=== PATIENT | male | born 1975 ===

== ENCOUNTER 2020-03-14 19:24 | Emergency (ER) | payer OTHER ==
[~2020-03-14] VITALS: Ht 182.9 cm; Wt 90.7 kg
--- NOTE | 2020-03-14 19:30 | NUR ---
PT AAOX4. BIBRA 102 FOR C/O "I FELT LIKE I'M DYING"S/P TAKING EDIBLE 1 HR AGO. DENIES SI OR HI. VSS. NO ACUTE DISTRESS NOTED.
[2020-03-14 20:02] LABS: BASOPHILS % (AUTO) 0.8 % (0.0-2.0); EOSINOPHILS % (AUTO) 3.8 % (0.0-6.0); HEMATOCRIT 36 % (39-51); HEMOGLOBIN 11.3 g/dL (13.5-17.5); LYMPHOCYTES # (AUTO) 0.9 /CMM (0.8-4.8); LYMPHOCYTES % (AUTO) 15.1 % (20.0-44.0); MEAN CORPUSCULAR HGB CONC 31 g/dl (31.0-36.0); MEAN CORPUSCULAR VOLUME 83 fL (80-96); MONOCYTES # (AUTO) 0.4 /CMM (0.1-1.30); MONOCYTES % (AUTO) 6.9 % (2.0-12.0); NEUTROPHILS # (AUTO) 4.4 /CMM (1.8-8.9); NEUTROPHILS % (AUTO) 73.4 % (43.0-81.0); PLATELET COUNT (AUTO) 373 /CMM (150-450); RED BLOOD CELL COUNT(AUTO) 4.39 MIL/uL (4.5-6.0)
[2020-03-14 20:12] LABS: CALCIUM, SERUM 8.8 mg/dL (8.5-10.1); POTASSIUM 3.8 mmol/L (3.5-5.1)
--- NOTE | 2020-03-14 20:22 | NUR ---
PT KEEPS MOVING AND REFUSES TO STAY STILL TO BE ABLE TO PERFORM THE U/S OF LOWER EXTREMITIES. PER ADELA, COME BACK IN 30MINS.
[2020-03-14] MEDS ORDERED: GABAPENTIN 100 MG CAPSULE PO ONE (20:30)
[2020-03-14] MEDS ORDERED: GABAPENTIN 100 MG CAPSULE ONE (20:33)
--- NOTE | 2020-03-14 21:07 | NUR ---
Pt refused Duplex study. Ernie KEE notified.
--- NOTE | 2020-03-14 21:07 | NUR ---
PT STILL REFUSED TO HAVE THE U/S OF LOWER EXTREMITY EXAM. BRIANNE BIGGS WAS ADVISED.
--- NOTE | 2020-03-14 21:55 | NUR ---
Patient discharged to home in stable condition. Written and verbal after care instructions given. Patient verbalizes understanding of instruction. Pt ambulated with steady gait. vss. Denies pain.
[2020-03-14 21:56] VITALS: BP 121/64
== END 2020-03-14 21:56 | disposition home or self-care (01) ==
LOC: ER 19:29
DX: F12.929 Cannabis use, unspecified with intoxication, unspecified (principal); R60.0 Localized edema; Z60.2 Problems related to living alone
CPT/HCPCS: 36415; 80048; 85025; 99283; A6253; A6403